=== PATIENT | male | born 1985 | race African-American/Black ===

== ENCOUNTER 2025-02-01 12:27 | Emergency (ER) | payer OTHER, SELFPAY ==
--- NOTE | ~2025-02-01 | CT_ITS ---
CT HEAD NON-CONTRAST Clinical History: headache, severe Comparison: None Technique: Unenhanced axial images skull base to vertex Coronal, sagittal reformats CT images acquired with automatic exposure control for dose reduction DLP: 605 mGy-cm Findings: Sulci, ventricles: Unremarkable. No intracerebral hemorrhage. No evidence acute territorial infarct. No mass effect, midline shift. Bony calvarium intact. Visualized paranasal sinuses: Clear. Mastoid air cells: Clear. IMPRESSION: 1. No acute intracranial findings. Reviewed, dictated and finalized at location R.
[2025-02-01 12:32] VITALS: BP 166/108; PULSE 58; RESP 16; TEMP 36.3; O2SAT 99
[2025-02-01] MEDS: SODIUM CHLORIDE 0.9% IV 1,000 ML 999 ML IV CONT (13:15)
[2025-02-01] MEDS: KETOROLAC 30 MG/ML VIAL (*BKC) IV PUSH (13:16)
[2025-02-01] MEDS: METOCLOPRAMIDE HCL INJ 10 MG/2 ML VIAL IV PUSH (13:16)
--- NOTE | 2025-02-01 15:42 | ED_ITS ---
HPI - Headache General Chief Complaint: Headache Stated Complaint: left sided headache x 2 weeks. Time Seen by Provider: 02/01/25 12:48 History of Present Illness HPI Narrative: Patient is a 39-year-old male who presents ER with left-sided headache. Ongoing for 2 weeks. Worse with bright lights and loud noises. No history of migraines. Recently had a tooth extracted on the left side upper jaw. No facial swelling or drainage. No fevers or chills. No improvement with [id number] medication. No extremity numbness or weakness. Related Data Allergies Allergy/AdvReac Type Severity Reaction Status Date / Time No Known Allergies Allergy Verified 02/01/25 12:33 Review of Systems Review of Systems: All systems reviewed & are unremarkable except as noted in HPI and below Constitutional: Constitutional: Reports no additional constitutional complaints ENT: Reports system reviewed and no additional complaints, except as documented Cardiovascular: Cardiovascular: Reports no additional cardiovascular complaints Respiratory: Respiratory: Reports no additional respiratory complaints Gastrointestinal: Gastrointestinal: Reports no additional gastrointestinal complaints PMFSH Past Medical History Medical History (Updated 02/01/25 @ 15:46 by Juan Daniel Bruner MD) Healthy adult male Exam Narrative: GENERAL: Well-appearing, well-nourished, and in no acute distress. HEAD: Normocephalic, atraumatic. ENT: Mucous membranes moist. TMs normal bilaterally. No will healing tooth extraction site number 14. CHEST: Clear to auscultation. No respiratory distress. HEART: Regular rate and rhythm. Normal peripheral pulses. EXTREMITIES: Normal range of motion. No edema. SKIN: Warm, dry, no rash. NEURO: Alert and oriented x3. PSYCH: Normal mood and affect. Course Course Emergency Course: Headache resolved with Reglan/Toradol/Benadryl/IV fluid. Discharge. Vital Signs Vital signs: Vital Signs Temperature 97.4 F L 02/01/25 12:32 Pulse Rate 58 L 02/01/25 12:32 Respiratory Rate 16 02/01/25 12:32 Blood Pressure 166/108 H 02/01/25 12:32 Pulse Oximetry 99 02/01/25 12:32 Temperature 97.4 F L 02/01/25 12:32 Pulse Rate 58 L 02/01/25 12:32 Respiratory Rate 16 02/01/25 12:32 Blood Pressure 166/108 H 02/01/25 12:32 Pulse Oximetry 99 10/17/25 12:32 MDM - Headache Imaging Data Radiologist's impression: ITS Impressions Head CT 02/01/25 12:50 IMPRESSION: 1. No acute intracranial findings. Discharge Plan Discharge Clinical Impression: Headache Patient Disposition: Home Condition: Stable Instructions: General Headache (ED) Additional Instructions: Try to stay well hydrated at home. Please return to the emergency department if you develop worsening of your headache or a new headache which is severe, associated with vision changes, associated with neck stiffness or fever, or if it is different from any other headache that you have had before. Return to the emergency department if you develop numbness, weakness or tingling or problems with coordination, or if you develop severe nausea and vomiting and are unable to keep down fluids at home. Patient Language: Citizen Of [place] Prescriptions: New ibuprofen 600 mg tablet 600 mg PO TID Qty: 20 0RF Follow-up/Referrals: PHYSICIAN,NETWORK CONTROL SUPERVISOR [Primary Care Provider, Internal Medicine] Teo Pearson MD [Physician, Family Practice] - 1 Week
== END 2025-02-01 15:55 | disposition home or self-care (01) ==
PROVIDERS: Emergency Provider Emergency Medicine
DX: R51.9 Headache, unspecified (principal)
CPT/HCPCS: 70450; 96361; 96374; 96375; 99284; J1200; J1885; J2765; J7030